=== PATIENT | female | born 1975 | race Hispanic/Latino ===

== ENCOUNTER 2023-10-16 20:16 | Emergency (ER) | payer OTHER, SELFPAY ==
[2023-10-16 20:25] VITALS: BP 114/75
--- NOTE | 2023-10-16 21:30 | ED.MUSCINJ ---
HPI-Injury
General
Chief Complaint: Extremity Pain (non-traumatic)
Source: patient and spouse
Exam Limitations: none
Time Seen by Provider: 10/16/23 21:22
Nursing documentation reviewed up to this point in time: agreed with
History of Present Illness-Injury
Is this injury a work related problem?: No
Is pt an associate of [facility]/[place]?: No
Initial Injury comments:
47-year-old female felt a pop in her left calf after playing basketball no ankle pain, she is able to move her foot, pain is moderate worse with movement having trouble bearing weight took some Motrin prior to arrival
Past History
Past History
ED Past Medical History: None; Negative Asthma, HTN, Hypercholesterolemia or NIDDM
ED Past Surgical History: None
Social History
Tobacco: Non-smoker
Alcohol: None
Drug: None
Personal:
Living: with family
Employment: Employed
Review of Systems
Review of Systems
All Other Systems: Not applicable
Respiratory: Reports no symptoms
Cardiac: Reports no symptoms
ABD/GI: Reports no symptoms
: Reports no symptoms
Musculoskeletal: Reports muscle pain and muscle stiffness; Denies joint swelling or edema
Neurological: Reports no symptoms
Phy Exam
Physical Exam
Physical Exam:
Physical Exam
General: no apparent distress, not acutely ill
Neck: No signs of head or neck
Lungs: no acute respiratory distress.
Neuro: alert and oriented. no focal neurological deficits
Skin: no rash
Psychiatric: well kept. interactive and cooperative
Extremities: Left calf tender worsening with range of motion Achilles appears intact negative Garcia test though she does have a fair amount of pain mechanism appears intact
Injury Course
Orders/Labs/Results
Orders:
Orders
10/16/23 20:30
Tib/Fib, Left 2 View [CR Leg Tibia/fibula Left 2 Vw] Urgent
Comment:
Reason For Exam: injury
10/16/23 21:26
Ice Pack-Treatment DIRECTED
Location: calf
Crutches-Treatment ONCE
Oxycodone/Acetaminophen [Percocet 5/325] 1 tablet PO NOW STA
MDM/Problems Addressed
Differential Diagnosis Includes:
Calf strain calf muscle tear Achilles tear Achilles strain no signs of tib-fib fracture or ankle injury by history physical imaging
MDM/Problems Addressed:
Calf pain
*Radiology
Radiology exam reviewed: preliminary read by ED provider
*Pulse Oximetry
Patient hypoxic: no
*Critical Care Note
Total Time (30-74mins, 75-104mins- exclusive of procedures): Not Applicable
Update Note
Update Note:
Suspect a calf strain/muscle tear will place on crutches nonweightbearing analgesia, follow-up orthopedics
ED Attending Note
-
Portions of this chart may have been created with voice recognition software.� Occasional wrong word or��sound alike� substitutions may have occurred due to the inherent limitations of voice recognition software.
Discharge Plan
Departure
Patient Disposition: Home (Routine Discharge)
Date of Disposition: 10/16/23
Time of Disposition: 21:32
Patient with high blood pressure during this ER visit?: No
Discharge Problem:
Injury of calf
Instructions: Muscle and Bone Pain (DC), Sprain (DC), Ibuprofen, Using Cold for Pain
Prescriptions:
New
ibuprofen [IBU] 600 mg tablet
600 mg PO Q6H PRN (Reason: Pain) Qty: 20 0RF
oxycodone-acetaminophen [Percocet] 5-325 mg tablet
1 tab PO Q6HPRN PRN (Reason: pain) Qty: 14 0RF
No Action
sulfamethoxazole-trimethoprim 800 MG/160 MG tablet
1 tab PO BID Qty: 14 0RF
hydrocodone-acetaminophen 5 MG/500 MG tablet
1 tab PO .Q4-6HPRN PRN (Reason: PAIN) Qty: 20 0RF
hydrocodone-acetaminophen 1 TABLET tablet
1 tab PO Q4HPRN PRN (Reason: pain) Qty: 15 0RF
prednisone 20 MG tablet
40 mg PO DAILY Qty: 10 0RF
Referrals:
NONE,* [Family Provider] -
Spenser Pierce MD [Active] - Next open appointment
Interventions
Interventions:
*Risk Screen - Suicide Last Done: 10/16/23 20:25
*General Assessment Last Done: 10/16/23 20:25
*Neglect/Abuse Screening Last Done: 10/16/23 20:25
ED- Fall Risk Assessment Last Done: 10/16/23 20:25
*ED COVID-19 Vaccine History Last Done: 10/16/23 20:25
ED-Skin Assessment Last Done: 10/16/23 20:52
ED-Peripheral Vascular Assessment Last Done: 10/16/23 20:52
ED-Musculoskeletal Assessment Last Done: 10/16/23 20:52
Discharge Date and Time
Print Language: MAORI
[2023-10-16] MEDS: PERCOCET 5/325 1 TABLET PO (21:34)
[2023-10-16 22:07] VITALS: BP 110/64
== END 2023-10-16 22:12 | disposition home or self-care (01) ==
LOC: EMR 20:16
PROVIDERS: EMERGENCY PHYSICIAN Emergency Medicine
DX: S89.92XA Unspecified injury of left lower leg, initial encounter (principal); M79.662 Pain in left lower leg; Y93.67 Activity, basketball
CPT/HCPCS: 99283; 73590

== ENCOUNTER → 2024-03-25 17:44 | Outpatient (REF) | payer SELFPAY | LOC: WDC 17:44 | PROVIDERS: ATTENDING PHYSICIAN Nurse Practitioner Adult Health | DX: Z12.31 Encounter for screening mammogram for malignant neoplasm of breast (principal) | CPT/HCPCS: 77063; 77067 ==

== ENCOUNTER → 2024-03-30 09:03 | Outpatient (REF) | payer OTHER, SELFPAY ==
[2024-03-30 10:49] LABS: ALT (SGPT) 24 U/L (0-35); AST (SGOT) 25 U/L (14-36); Albumin 4.2 g/dl (3.5-5.0); Alkaline Phosphatase 58 U/L (38-126); Blood Urea Nitrogen 11 mg/dl (7-17); Calcium 8.8 mg/dl (8.4-10.2); Carbon Dioxide 28 mmol/L (22-30); Chloride 102 mmol/L (98-107); Glucose 93 mg/dl (70-99); HDL Cholesterol 53 mg/dl; LDL Cholesterol, Calculated 139 mg/dl; Potassium 4.1 mmol/L (3.5-5.1); Sodium 138 mmol/L (135-145); Total Bilirubin 0.5 mg/dl (0.2-1.3); Total Cholesterol 213 mg/dl (50-199); Total Protein 7.6 g/dl (6.3-8.2); Triglyceride 106 mg/dl (10-149); Very Low Density Lipoprotein 21 mg/dl (0-30); eGFR > 60.00
[2024-03-30 11:32] LABS: Glycohemoglobin (HgbA1c) 5.8 % (4.0-5.6)
== END ==
LOC: REG 09:03
PROVIDERS: ATTENDING PHYSICIAN Nurse Practitioner Adult Health
DX: R73.03 Prediabetes (principal)
CPT/HCPCS: 36415; 80053; 80061; 83036

== ENCOUNTER → 2024-03-30 09:17 | Outpatient (REF) | payer OTHER, SELFPAY | LOC: WDC 09:17 | PROVIDERS: ATTENDING PHYSICIAN Nurse Practitioner Adult Health | DX: R92.8 Other abnormal and inconclusive findings on diagnostic imaging of breast (principal) | CPT/HCPCS: 76642 ==

== ENCOUNTER → 2024-07-26 09:19 | Outpatient (REF) | payer OTHER, SELFPAY | LOC: RAD 09:19 | PROVIDERS: ATTENDING PHYSICIAN Nurse Practitioner Adult Health | DX: M25.562 Pain in left knee (principal) | CPT/HCPCS: 73564; 73565 ==